=== PATIENT | female | born 1995 | race American Indian/Alaskan Native ===

== ENCOUNTER 2018-02-05 22:24 | Inpatient (IN) | payer OTHER ==
[2018-02-05] MEDS ORDERED: XYLOCAINE 2% INFILTRATI ONE (23:31)
[2018-02-05] MEDS ORDERED: PHENERGAN PO PRN (23:31)
[2018-02-05] MEDS ORDERED: BRETHINE IVP PRN (23:31)
[2018-02-05] MEDS ORDERED: STADOL IV PRN (23:31)
[2018-02-05] MEDS ORDERED: ePHEDrine SULFATE IV PRN (23:31)
[2018-02-05] MEDS ORDERED: BRETHINE SUB-Q PRN (23:31)
--- NOTE | 2018-02-05 23:31 | History and Physical Report ---
History of Present Illness Date of examination: 02/05/18 Date of admission: 02/05/18 23:23 History of present illness: Patient presents to triage with complaints of ruptured membranes approximately 8 :30 PM. Initial evaluation in triage revealed the patient was ruptured with the cervix dilatation of 5 cm. Patient then admitted for active labor Menstrual History Regularity: regular Duration: 5 LMP: 04/29/2017 LMP reliability: definite LMP character: normal test type: urine test Date: 01/12/2018 BC at conception: none Planned ? yes EDC Calculations LMP: 02/03/2018 EDC Confirmation: 01/29/2018 Past History : 2 Term Births: 0 Premature Births: 0 Living Children: 0 Para: 0 Mult. Births: 0 Prev : 0 Prev. attempt? none Aborta: 1 Elect. Ab: 0 Spont. 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) Family/Genetic History: other (see HPI) Social history: other (see HPI) - Obstetrical History Expected Date of Delivery: 01/29/18 Actual Gestation: 41 Week(s) 1 Day(s) : 2 Para: 0 Hx # Term Pregnancies: 0 Number of Pregnancies: 0 Spontaneous Abortions: 1 Induced : 0 Number of Living Children: 0 Medications and Allergies Allergies Allergy/AdvReac Type Severity Reaction Status Date / Time No Known Allergies Allergy Verified 02/05/18 23:48 Home Medications Medication Instructions Recorded Confirmed Last Taken Type Vit,Calc76/Iron/Folic 1 tab PO DAILY 02/05/18 02/05/18 02/05/18 10:30 History [Pnv 29-1 Tablet] - Vital Signs Vital signs: Vital Signs Temp Pulse Resp BP Pulse Ox 98.4 F 85 18 125/80 100 02/05/18 23:07 02/05/18 23:07 02/05/18 23:07 02/05/18 23:07 02/05/18 23:07 Temp Pulse Resp BP Pulse Ox 98.4 F 85 18 125/80 100 02/05/18 23:07 02/05/18 23:07 02/05/18 23:07 02/05/18 23:07 02/05/18 23:07 - Physical Exam Breasts: Positive: deferred Cardiovascular: Regular rate Lungs: Positive: Normal air movement Abdomen: Positive: normal appearance, soft, normal bowel sounds Genitourinary (Female): Positive: normal external genitalia, normal perenium Vulva: both: normal Vagina: Positive: normal moisture Cervix: Positive: other (Per RN) Uterus: Positive: enlarged Anus/Rectum: Positive: normal perianal skin Extremities: Positive: edema - Obstetrical FHR: category 2 Uterine Contraction Monitor Mode: Palpation Uterine Contraction Pattern: Regular Results Result Diagrams: 02/05/18 23:35 All other labs normal. Assessment and Plan - Patient Problems (1) Post term at 41 weeks gestation Current Visit: Yes Status: Acute (2) Spontaneous rupture of amniotic membranes Current Visit: Yes Status: Acute (3) Active labor at term Current Visit: Yes Status: Acute Plan to address problem: Arthur manage labor and delivery for follow active labor protocol. Augment labor if necessary.
[2018-02-05] MEDS ORDERED: PITOCin/NS 20 UNIT/1000ML DRIP 20 UNITS/1,000 ML BAG IV SCH (23:45)
[2018-02-05 23:53] LABS: Hematocrit 35.5 % (30.3-42.9); Hemoglobin 11.7 gm/dl (10.1-14.3); Mean Corpuscular HGB Conc 33 % (30-34); Mean Corpuscular Hemoglobin 29 pg (28-32); Mean Corpuscular Volume 87 fl (79-97); Platelet Count 221 K/mm3 (140-440); Red Blood Count 4.07 M/mm3 (3.65-5.03); Red Cell Distribution Width 14.2 % (13.2-15.2)
[2018-02-06] MEDS: LACTATED RINGERS 1,000 ML IV SCH ×4 (00:04→04:27)
[2018-02-06] MEDS ORDERED: ePHEDrine SULFATE IV PRN (01:47)
[2018-02-06] MEDS ORDERED: NARCAN 2 MG/2 ML IV PRN (01:47)
--- NOTE | 2018-02-06 01:47 | Anesthesia Consultation ---
Anesthesia Consult and Med Hx Date of service: 02/06/18 - Airway Anesthetic Teeth Evaluation: Good ROM Head & Neck: Adequate Mental/Hyoid Distance: Adequate Mallampati Class: Class II Intubation Access Assessment: Probably Good - Pulmonary Exam CTA: Yes - Cardiac Exam Cardiac Exam: RRR - Pre-Operative Health Status ASA Pre-Surgery Classification: ASA2 Proposed Anesthetic Plan: Epidural - Pulmonary Hx Asthma: No COPD: No - Cardiovascular System Hx Hypertension: No - Central Nervous System Hx Seizures: No Hx Psychiatric Problems: No - Endocrine Hx Renal Disease: No Hx End Stage Renal Disease: No Hx Hypothyroidism: No Hx Hyperthyroidism: No - Hematic Hx Anemia: No Hx Sickle Cell Disease: No - Other Systems Hx Alcohol Use: No
[2018-02-06] MEDS ORDERED: fentaNYL-BUPIV 2 MCG/ML-0.125% 200 MCG/100 ML BAG EPIDURAL SCH (02:00)
--- NOTE | 2018-02-06 03:04 | Event Note ---
Date: 02/06/18 Patient comfortable with epidural. Cervix now 7/100/0+1. tracing with minimal reactivity. IUPC and FSE placed. Cervix is changing will watch progress and and also watch tracing.
[2018-02-06] MEDS ORDERED: PITOCin/NS 30 UNIT/500ML 30,000 MILLIUNITS/500 ML BAG IV ONE (03:20)
--- NOTE | 2018-02-06 03:49 | Event Note ---
Date: 02/06/18 Patient had a deceration improved with change of position cx 8cm
--- NOTE | 2018-02-06 06:00 | Event Note ---
Date: 02/06/18 tracing improved patient's exam now cervix rim completely dilated at +1 to +2 station. We will start pushing once tracing close
[2018-02-06] MEDS ORDERED: METHERGINE IM ONE ×2 (07:31→08:00)
--- NOTE | 2018-02-06 07:49 | Procedure Note ---
OB Delivery Note - Delivery Date of Delivery: 02/06/18 ( male) Newspaper Photographer: EDGAR MATOS Estimated blood loss: 500cc - Vaginal Delivery presentation: vertex Delivery position: OA Intrapartum events: none, decreased FHT variability, uterine atony (resolved with massage and IV pitocin) Delivery monitor: internal FHT, internal uterine Route of delivery: Delivery placenta: spontaneous Delivery cord: 3 umbilical vessels Episiotomy: none Delivery laceration: 2nd degree Delivery repair: vicryl Anesthesia: epidural Delivery comments: male infant del over intact perineum OA, placed skin to skin on mother' s abdomen. 3 vessel cord clamped and cut. cord blood collected. Placenta del intact and complete. Uterus boggy but firmed with massage and IV pitocin. 2nd degree lac repaired w/ vicryl in the usual fashion. EBL 500, apgars 8/9, wt 8# 3oz. Mother and infant remain LDR stable - Infant A at 1 minute: 8 at 5 minutes: 9 Gender: Male
[2018-02-06] MEDS ORDERED: PRENATAL VITAMIN PO SCH (16:36)
[2018-02-06] MEDS ORDERED: SODIUM CHLORIDE FLUSH SYRINGE 10 ML IV NR (16:36)
[2018-02-06] MEDS ORDERED: PITOCin/NS 20 UNIT/1000ML DRIP 20 UNITS/1,000 ML BAG IV SCH (16:36)
[2018-02-06] MEDS ORDERED: LANSINOH TP PRN (16:36)
[2018-02-06] MEDS ORDERED: PHENERGAN PO PRN (16:36)
[2018-02-06] MEDS ORDERED: DERMOPLAST TP PRN (16:36)
[2018-02-06] MEDS ORDERED: MILK OF MAGNESIA PO PRN (16:36)
[2018-02-06] MEDS ORDERED: ZOFRAN IV PRN (16:36)
[2018-02-06] MEDS ORDERED: BENADRYL PO PRN (16:36)
[2018-02-06] MEDS ORDERED: DULCOLAX PR PRN (16:36)
[2018-02-06] MEDS ORDERED: TYLENOL PO PRN (16:36)
[2018-02-06] MEDS ORDERED: TUCKS PAD TP PRN (16:36)
[2018-02-06 18:22] LABS: Hematocrit 35.4 % (30.3-42.9); Hemoglobin 11.3 gm/dl (10.1-14.3)
[2018-02-06] MEDS: MOTRIN PO SCH (18:25)
[2018-02-06] MEDS: FEOSOL PO SCH (22:17)
[2018-02-06] MEDS: COLACE PO SCH (22:17)
[2018-02-07] MEDS: MOTRIN PO SCH ×3 (00:09→12:25)
[2018-02-07] MEDS ORDERED: BOOSTRIX IM ONE ×2 (07:56→17:57)
--- NOTE | 2018-02-07 10:33 | Progress Note ---
Assessment and Plan - Patient Problems (1) (normal spontaneous vaginal delivery) Current Visit: Yes Status: Acute Plan to address problem: -routine pp care -d/c home today Subjective - Subjective Date of service: 02/07/18 Principal diagnosis: PPD #1 s/p -doing well Interval history: Pt doing well and desires d/c home today. Breast/bottle feeding. Patient reports: appetite normal, voiding normally, pain well controlled, no dizzy ambulation [place]: doing well, nursing well, bottle feeding Objective - Vital Signs Latest vital signs: Vital Signs Temp Pulse Resp BP 02/06/18 16:00 98.4 F 94 H 20 115/77 Intake and Output 02/06/18 02/07/18 02/07/18 22:59 06:59 14:59 Intake Total 120 Output Total 900 Balance -900 120 Intake: Oral 120 Output: Urine 900 Void 900 Other: Total, Intake Amount 120 Total, Output Amount 900 # Voids Void 1 - Exam Cardiovascular: Present: Normal S1 Lungs: Present: Clear to auscultation, Normal air movement Abdomen: Present: normal appearance, soft, normal bowel sounds. Absent: distention, tenderness, guarding Uterus: Present: normal, firm, fundal height below umbilicus. Absent: bogginess , tenderness Extremities: Present: normal. Absent: tenderness, edema Deep Tendon Reflex Grade: Normal +2
[2018-02-07] MEDS: COLACE PO SCH (10:41)
[2018-02-07] MEDS: FEOSOL PO SCH (10:41)
--- NOTE | 2018-02-07 11:30 | Discharge Summary ---
Providers - Providers Date of Admission: 02/05/18 23:23 Date of discharge: 02/07/18 Attending physician: STONE BAUMAN 02/06/18 16:36 Consult to Nail Welter [CONS] Routine Reason For Exam: assistance with , SNS Primary care physician: STONE BAUMAN Hospitalization Reason for admission: active labor, section Procedure details: see delivery note Episiotomy: other (see delivery note) [place] baby: male Hospital course: Pt s/p . Routine pp care that was not complicated. Pt will be d/c home today PPD #1. Condition at discharge: Good Disposition: DC-01 TO HOME OR SELFCARE - Discharge Diagnoses (1) (normal spontaneous vaginal delivery) Status: Acute Plan - Provider Discharge Summary Additional instructions: [] Smoking cessation referral if applicable(refer to patient education folder for contact #) [] Refer to [facility] Booklet Call your doctor immediately for: * Fever > 100.5 * Heavy vaginal bleeding ( >1 pad per hour) * Severe persistent headache * Shortness of breath * Reddened, hot, painful area to leg or breast * Drainage or odor from incision. * Keep incision clean and dry at all times and follow doctor's instructions regarding bathing/showering PLEASE CALL TO SCHEDULE CIRCUMCISION WITHIN FIRST TWO WEEKS OF DELIVERY. - Follow up plan Follow up: STONE BAUMAN MD [Primary Care Provider] - 7 Days
[2018-02-07 14:14] VITALS: BP 125/89
== END 2018-02-07 18:30 | disposition home or self-care (01) | DRG 775 ==
LOC: TRG 22:24 → LD 23:23 → TRG 23:23 → OB 02-06 11:26
PROVIDERS: ADMIT Obstetrics & Gynecology; ATTEND Obstetrics & Gynecology
PROC: 10E0XZZ Delivery of Products of Conception, External Approach (ICD-10-PCS; principal; 2018-02-06)
PROC: 0KQM0ZZ Repair Perineum Muscle, Open Approach (ICD-10-PCS; 2018-02-06)
PROC: 3E0R3BZ Introduction of Anesthetic Agent into Spinal Canal, Percutaneous Approach (ICD-10-PCS; 2018-02-06)
PROC: 00HU33Z Insertion of Infusion Device into Spinal Canal, Percutaneous Approach (ICD-10-PCS; 2018-02-06)
DX: O48.0 Post-term pregnancy (principal); Z3A.41 41 weeks gestation of pregnancy; Z37.0 Single live birth; O70.1 Second degree perineal laceration during delivery; O76 Abnormality in fetal heart rate and rhythm complicating labor and delivery; O62.2 Other uterine inertia
CPT/HCPCS: 36415; 85014; 85018; 85027; 86762; 86850; 86900; 86901; 90715; 99211; G0463; J0595; J2210; J2590; J7120

== ENCOUNTER 2019-07-24 22:36 | Emergency (ER) | payer OTHER ==
--- NOTE | 2019-07-25 00:07 | Emergency Department Report ---
ED General Adult HPI - General Chief complaint: Extremity Injury, Lower Stated complaint: LEG PAIN/CLOT Time Seen by Provider: 07/24/19 23:46 Source: patient Mode of arrival: Ambulatory Limitations: No Limitations - History of Present Illness Initial comments: 24-year-old female patient who is 27 weeks presents with complaints of abnormal bruising on her left lower leg. Patient states both legs have been intermittently hurting for the past 2 months. She denies any swelling or injuries to her legs. Denies any history of abnormal bleeding, bleeding disorders, leading guns, hematochezia, hematuria, or DVT/PE. Patient states her last long travel was about 3 months ago. -: Sudden Location: lower extremity Consistency: intermittent Worsens with: other (standing for extended periods of time) Associated Symptoms: denies other symptoms - Related Data Home Medications Medication Instructions Recorded Confirmed Last Taken Vit,Calc76/Iron/Folic 1 tab PO DAILY 02/05/18 02/05/18 02/05/18 10:30 [Pnv 29-1 Tablet] Previous Rx's Medication Instructions Recorded Last Taken Type Lidocain2.5%/Prilocai2.5% [Emla] 1 gm TP ONCE #1 tube 02/07/18 Unknown Rx Allergies Allergy/AdvReac Type Severity Reaction Status Date / Time No Known Allergies Allergy Verified 02/05/18 23:48 ED Review of Systems ROS: Stated complaint: LEG PAIN/CLOT Other details as noted in HPI Eyes: denies: vision change ENT: denies: epistaxis Respiratory: denies: cough, shortness of breath Cardiovascular: denies: chest pain, palpitations, edema, syncope Gastrointestinal: denies: abdominal pain, nausea, vomiting, diarrhea, constipation, hematemesis, melena, hematochezia Genitourinary: denies: urgency, dysuria, frequency, hematuria Musculoskeletal: denies: joint swelling Skin: denies: rash, lesions Neurological: denies: headache, weakness, numbness, paresthesias Hematological/Lymphatic: denies: easy bleeding, swollen glands ED Past Medical Hx - Past Medical History Previous Medical History?: No Hx Hypertension: No Hx Diabetes: No Hx Deep Vein Thrombosis: No Hx Renal Disease: No Hx Sickle Cell Disease: No Hx Seizures: No Hx Asthma: No Hx COPD: No Hx HIV: No - Surgical History Past Surgical History?: Yes Hx Pacemaker: Yes - Social History Smoking Status: Never Smoker Substance Use Type: None - Medications Home Medications: Home Medications Medication Instructions Recorded Confirmed Last Taken Type Vit,Calc76/Iron/Folic 1 tab PO DAILY 02/05/18 02/05/18 02/05/18 10:30 History [Pnv 29-1 Tablet] Lidocain2.5%/Prilocai2.5% [Emla] 1 gm TP ONCE #1 tube 02/07/18 Unknown Rx ED Physical Exam - General Limitations: No Limitations General appearance: alert, in no apparent distress - Head Head exam: Present: atraumatic, normocephalic - Eye Eye exam: Present: normal appearance. Absent: scleral icterus - ENT ENT exam: Present: normal exam, normal orophraynx - Neck Neck exam: Present: normal inspection - Respiratory Respiratory exam: Present: normal lung sounds bilaterally. Absent: respiratory distress - Cardiovascular Cardiovascular Exam: Present: regular rate, normal rhythm. Absent: systolic murmur, diastolic murmur, rubs, gallop - GI/Abdominal GI/Abdominal exam: Present: soft, normal bowel sounds - Rectal Rectal exam: Present: deferred - Extremities Exam Extremities exam: Absent: calf tenderness - Neurological Exam Neurological exam: Present: alert, oriented X3 - Psychiatric Psychiatric exam: Present: normal affect, normal mood - Skin Skin exam: Present: warm, dry, intact, normal color, ecchymosis (3 small diffuse bruises noted to the left lower leg). Absent: rash, cyanosis, diaphoretic, erythema, urticaria, petechiae, pallor ED Course Vital Signs 07/24/19 07/25/19 22:41 05:07 Temperature 97.3 F L Pulse Rate 88 78 Respiratory 18 16 Rate Blood Pressure 110/72 Blood Pressure 111/72 [Right] O2 Sat by Pulse 100 99 Oximetry ED Medical Decision Making - Lab Data Result diagrams: 07/25/19 00:00 07/25/19 00:00 Lab Results 07/25/19 07/25/19 07/25/19 Range/Units 00:00 00:00 00:00 WBC 10.0 (4.5-11.0) K/mm3 RBC 3.89 (3.65-5.03) M/mm3 Hgb 11.3 (10.1-14.3) gm/dl Hct 33.7 (30.3-42.9) % MCV 87 (79-97) fl MCH 29 (28-32) pg MCHC 34 (30-34) % RDW 13.7 (13.2-15.2) % Plt Count 206 (140-440) K/mm3 Add Manual Diff Complete Total Counted 100 Seg Neuts % (Manual) 73.0 H (40.0-70.0) % Band Neutrophils % 0 % Lymphocytes % (Manual) 20.0 (13.4-35.0) % Reactive Lymphs % (Man) 0 % Monocytes % (Manual) 5.0 (0.0-7.3) % Eosinophils % (Manual) 2.0 (0.0-4.3) % Basophils % (Manual) 0 (0.0-1.8) % Metamyelocytes % 0 % Myelocytes % 0 % Promyelocytes % 0 % Blast Cells % 0 % Nucleated RBC % Not Reportable Seg Neutrophils # Man 7.3 (1.8-7.7) K/mm3 Band Neutrophils # 0.0 K/mm3 Lymphocytes # (Manual) 2.0 (1.2-5.4) K/mm3 Abs React Lymphs (Man) 0.0 K/mm3 Monocytes # (Manual) 0.5 (0.0-0.8) K/mm3 Eosinophils # (Manual) 0.2 (0.0-0.4) K/mm3 Basophils # (Manual) 0.0 (0.0-0.1) K/mm3 Metamyelocytes # 0.0 K/mm3 Myelocytes # 0.0 K/mm3 Promyelocytes # 0.0 K/mm3 Blast Cells # 0.0 K/mm3 WBC Morphology Not Reportable Hypersegmented Neuts Not Reportable Hyposegmented Neuts Not Reportable Hypogranular Neuts Not Reportable Smudge Cells Not Reportable Toxic Granulation Not Reportable Toxic Vacuolation Not Reportable Dohle Bodies Not Reportable Pelger-Huet Anomaly Not Reportable Tamela Rods Not Reportable Platelet Estimate Consistent w auto Clumped Platelets Not Reportable Plt Clumps, EDTA Not Reportable Large Platelets Not Reportable Giant Platelets Not Reportable Platelet Satelliting Not Reportable Plt Morphology Comment Not Reportable RBC Morphology Normal Dimorphic RBCs Not Reportable Polychromasia Not Reportable Hypochromasia Not Reportable Poikilocytosis Not Reportable Anisocytosis Not Reportable Microcytosis Not Reportable Macrocytosis Not Reportable Spherocytes Not Reportable Pappenheimer Bodies Not Reportable Sickle Cells Not Reportable Target Cells Not Reportable Tear Drop Cells Not Reportable Ovalocytes Not Reportable Helmet Cells Not Reportable [place] Bodies Not Reportable [place] Rings Not Reportable [place] Cells Not Reportable Bite Cells Not Reportable Crenated Cell Not Reportable Elliptocytes Not Reportable Acanthocytes (Spur) Not Reportable Rouleaux Not Reportable Hemoglobin C Crystals Not Reportable Schistocytes Not Reportable Malaria parasites Not Reportable Tremayne Bodies Not Reportable Hem Pathologist Commnt No PT 13.2 (12.2-14.9) Sec. INR 1.01 (0.87-1.13) APTT 27.6 (24.2-36.6) Sec. Sodium 137 (137-145) mmol/L Potassium 4.2 (3.6-5.0) mmol/L Chloride 102.9 (98-107) mmol/L Carbon Dioxide 21 L (22-30) mmol/L Anion Gap 17 mmol/L BUN 8 (7-17) mg/dL Creatinine 0.4 L (0.7-1.2) mg/dL Estimated GFR > 60 ml/min BUN/Creatinine Ratio 20 % Glucose 100 (65-100) mg/dL Calcium 8.9 (8.4-10.2) mg/dL Total Bilirubin 0.30 (0.1-1.2) mg/dL AST 16 (5-40) units/L ALT 9 (7-56) units/L Alkaline Phosphatase 91 (35-129) units/L Total Protein 6.5 (6.3-8.2) g/dL Albumin 3.2 L (3.9-5) g/dL Albumin/Globulin Ratio 1.0 % - Medical Decision Making Patient here for 2 months of bilateral lower leg pain and new onset of bruising to her left leg without injury today. She is 37 weeks . She denies any blood disorders. CBC is WNL. PT and INR are normal. No kidney dysfunction is noted on labs. Ultrasound ordered, but patient unable to obtain tonight due to Doppler being unavailable here in the ED tonight. Patient to discharge home and come back in the morning for her ultrasound with nuclear medicine. Also recommend patient follows up with her BRUSH OR BROOM CUTTER within 1-2 days. Discussed very strict return precautions in detail with patient who states understanding. Critical care attestation.: If time is entered above; I have spent that time in minutes in the direct care of this critically ill patient, excluding procedure time. ED Disposition Clinical Impression: Abnormal bruising, Bilateral lower extremity pain Disposition: TO HOME OR SELFCARE Is pt being admited?: No Condition: Stable Additional Instructions: Please return to the Nuclear Medicine Department tomorrow morning at 8 am. It is also recommended that you follow up with your OBGYN provider within 2 days. Return to the emergency department if he developed any new or worsening symptoms Referrals: TOSHA COELLO MD [Primary Care Provider] - 3-5 Days
[2019-07-25 00:17] LABS: Hematocrit 33.7 % (30.3-42.9); Hemoglobin 11.3 gm/dl (10.1-14.3); Mean Corpuscular HGB Conc 34 % (30-34); Mean Corpuscular Volume 87 fl (79-97); Platelet Count 206 K/mm3 (140-440); Red Blood Count 3.89 M/mm3 (3.65-5.03); Red Cell Distribution Width 13.7 % (13.2-15.2)
[2019-07-25 00:40] LABS: Alanine Aminotransferase 9 units/L (7-56); Albumin 3.2 g/dL (3.9-5); BUN/Creatinine Ratio 20; Blood Urea Nitrogen 8 mg/dL (7-17); Calcium 8.9 mg/dL (8.4-10.2); Hemolysis Index 13
[2019-07-25 01:00] LABS: INR 1.01 (0.87-1.13)
[2019-07-25 01:01] LABS: Partial Thromboplastin Time 27.6 Sec. (24.2-36.6)
[2019-07-25 02:27] LABS: Basophils % (Manual) 0 % (0.0-1.8); Platelet Estimate Consistent w Auto; RBC Morphology Normal; Total Cells Counted 100
[2019-07-25 05:08] VITALS: BP 111/72
== END 2019-07-25 02:45 | disposition home or self-care (01) ==
LOC: ED 22:36
DX: O26.893 Other specified pregnancy related conditions, third trimester (principal); M79.604 Pain in right leg; M79.605 Pain in left leg; Z3A.37 37 weeks gestation of pregnancy
CPT/HCPCS: 36415; 80053; 85007; 85025; 85610; 85730

== ENCOUNTER 2019-07-25 13:31 | Outpatient (CLI) | payer OTHER ==
--- NOTE | 2019-07-25 16:22 | Vascular Lab Report ---
DUPLEX DOPPLER LOWER EXTREMITY VEINS, BILATERAL INDICATION: Bilateral lower extremity edema. TECHNIQUE: Duplex doppler imaging was performed through the veins of both lower extremities using venous dorinda aris and other maneuvers. COMPARISON: No relevant prior imaging study available. FINDINGS: Right Common Femoral vein: Negative. Right Superficial Femoral vein: Negative. Right Popliteal vein: Negative. Right Calf veins: Negative. Left Common Femoral vein: Negative. Left Superficial Femoral vein: Negative. Left Popliteal vein: Negative. Left Calf veins: Negative. Additional findings: None. IMPRESSION: 1. No sonographic evidence for DVT in either lower extremity. Signer Name: Artis Mauro MD Signed: 07/25/2019 4:18 PM Workstation Name: [id number]
== END 2019-07-25 13:32 | disposition home or self-care (01) ==
LOC: US 13:31
PROVIDERS: ATTEND Obstetrics & Gynecology
DX: R22.40 Localized swelling, mass and lump, unspecified lower limb (principal)
CPT/HCPCS: 93970

== ENCOUNTER 2019-08-03 16:40 | Outpatient (CLI) | payer OTHER ==
[2019-08-03 17:01] VITALS: BP 111/61
--- NOTE | 2019-08-03 19:15 | Ultrasound Report ---
Limited OB ultrasound for DAPHNE FINDINGS: DAPHNE is in the low normal range at 10.2 cm. Signer Name: Tam Malone MD Signed: 08/03/2019 7:10 PM Workstation Name: [id number]
== END 2019-08-03 18:55 | disposition home or self-care (01) ==
LOC: TRG 16:40
PROVIDERS: ATTEND Obstetrics & Gynecology
DX: O47.1 False labor at or after 37 completed weeks of gestation (principal); Z3A.39 39 weeks gestation of pregnancy
CPT/HCPCS: 76815

== ENCOUNTER 2019-08-11 03:10 | Inpatient (IN) | payer OTHER ==
[2019-08-11] MEDS ORDERED: TERBUTALINE 1 MG/1 ML INJ SUB-Q PRN (04:02)
[2019-08-11] MEDS ORDERED: BUTORPHANOL 2 MG/1 ML INJ IV PRN (04:02)
[2019-08-11] MEDS ORDERED: fentaNYL 100 MCG/2 ML INJ IV PRN (04:02)
[2019-08-11] MEDS ORDERED: MINERAL OIL 30 ML ORAL LIQD PO PRN (04:02)
[2019-08-11] MEDS ORDERED: TERBUTALINE 1 MG/1 ML INJ IVP PRN (04:02)
[2019-08-11] MEDS ORDERED: LIDOCAINE (2%) 20 MG/1 ML VIAL 20 ML MDV INFILTRATI ONE (04:02)
[2019-08-11] MEDS ORDERED: ePHEDrine SULFATE 50 MG/1 ML INJ IV PRN (04:02)
[2019-08-11 04:29] LABS: Hematocrit 35.9 % (30.3-42.9); Hemoglobin 12.1 gm/dl (10.1-14.3); Mean Corpuscular HGB Conc 34 % (30-34); Mean Corpuscular Volume 86 fl (79-97); Platelet Count 213 K/mm3 (140-440); Red Blood Count 4.16 M/mm3 (3.65-5.03); Red Cell Distribution Width 14.1 % (13.2-15.2)
[2019-08-11] MEDS: OXYTOCIN 20 UNIT/1000ML DRIP 20 UNITS/1,000 ML BAG IV SCH ×2 (04:50→06:00)
[2019-08-11] MEDS ORDERED: LACTATED RINGERS 1,000 ML IV SCH (05:00)
--- NOTE | 2019-08-11 05:07 | History and Physical Report ---
History of Present Illness Date of examination: 08/11/19 Chief complaint: Labor History of present illness: EDC Calculations LMP: 08/10/2019 Past History : 3 Term Births: 1 Premature Births: 0 Living Children: 1 Para: 0 Mult. Births: 0 Prev : 0 Prev. attempt? none Aborta: 1 Elect. Ab: 0 Spont. 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 of genital herpes: no Partner hx. of genital herpes: no Rash, Viral, or Febrile illness since last LMP? no Varicella/Chicken Pox Status: Previous Disease TB Risk: no Genetic History Congenital Heart Defect: Mom: no Dad: no Derek Disease: Mom: no Dad: no Thalassemia Mom: no Dad: no Neural Tube Defect Mom: no Dad: no Down's Syndrome Mom: no Dad: no Donny-Sachs Mom: no Dad: no Sickle Cell Disease/Trait Mom: no Dad: no Hemophilia Mom: no Dad: no Muscular Dystrophy Mom: no Dad: no Cystic Fibrosis Mom: no Dad: no Sarah Chorea Mom: no Dad: no Mental Retardation Mom: no Dad: no Fragile X Mom: no Dad: no Other Genetic/Chromosomal Disorder Mom: no Dad: no Child w/other defect Mom: no Dad: no Enviromental Exposures Enviromental Exposures Reviewed Xray Exposure: no Medication, drug, or alcohol use since LMP: no Chemical/Other Exposure: no Exposure to Cat Liter: no Hx of Parvovirus (Fifth Disease): no Occupational Exposure to Children: none Active Medications (reviewed today): PNV () Current Allergies (reviewed today): No known allergies Past History Past Medical History: other (see HPI) Past Surgical History: other (see HPI) 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) Family/Genetic History: other (see HPI) Social history: no significant social history - Obstetrical History Expected Date of Delivery: 08/10/19 Actual Gestation: 40 Week(s) 1 Day(s) : 3 Para: 1 Hx # Term Pregnancies: 1 Number of Pregnancies: 0 Spontaneous Abortions: 1 Induced : 0 Number of Living Children: 1 Medications and Allergies Allergies Allergy/AdvReac Type Severity Reaction Status Date / Time No Known Allergies Allergy Verified 08/11/19 04:01 Home Medications Medication Instructions Recorded Confirmed Last Taken Type Vit,Calc76/Iron/Folic 1 tab PO DAILY 02/05/18 08/03/19 08/03/19 07:00 History [Pnv 29-1 Tablet] Active Meds: Active Medications Butorphanol Tartrate (Stadol) 2 mg IV Q2H PRN PRN Reason: Pain , Severe (7-10) Ephedrine Sulfate (Ephedrine Sulfate) 10 mg IV Q2M PRN PRN Reason: Hypotension Fentanyl (Sublimaze) 100 mcg IV Q2H PRN PRN Reason: Labor Pain Oxytocin/Sodium Chloride (Pitocin/Ns 20 Unit/1000ml Drip) 20 units in 1,000 mls @ 125 mls/hr IV DIRECT DEJAN Lactated Ringer's (Lactated Ringers) 1,000 mls @ 125 mls/hr IV DIRECT DEJAN Mineral Oil (Mineral Oil) 30 ml PO QHS PRN PRN Reason: Constipation Terbutaline Sulfate (Brethine) 0.25 mg SUB-Q ONCE PRN PRN Reason: Hyperstimulation/Hypertonicity Terbutaline Sulfate (Brethine) 0.25 mg IVP ONCE PRN PRN Reason: Hyperstimulation/Hypertonicity Review of Systems All systems: negative - Vital Signs Vital signs: Vital Signs Pulse Pulse Ox 79 100 08/11/19 03:56 08/11/19 03:56 Temp Pulse Resp BP Pulse Ox 83 136/76 98 08/11/19 04:19 08/11/19 04:19 08/11/19 04:06 - Physical Exam Breasts: Positive: normal Cardiovascular: Regular rate Lungs: Positive: Clear to auscultation, Normal air movement Abdomen: Positive: normal appearance, soft Genitourinary (Female): Positive: normal external genitalia, normal perenium Vulva: both: normal Uterus: Positive: normal size, normal contour Anus/Rectum: Positive: normal perianal skin Extremities: Positive: normal Deep Tendon Reflex Grade: Normal +2 - Obstetrical FHR: auscultation normal Uterine Contraction Monitor Mode: External Cervical Dilatation: 10 (SROM clear fluid ) Cervical Effacement Percentage: 100 station: +1 Uterine Contraction Pattern: Regular Uterine Tone Measurement Phase: Contraction Uterine Contraction Intensity: Strong/Firm Results Result Diagrams: 08/11/19 03:45 All other labs normal. Assessment and Plan Admission orders in EMR, anticipate delivery. - Patient Problems (1) Active labor at term Current Visit: No Status: Acute
--- NOTE | 2019-08-11 05:14 | Procedure Note ---
OB Delivery Note - Delivery Date of Delivery: 08/11/19 ( female) Cras: EDGAR MATOS Estimated blood loss: 300cc - Vaginal Delivery presentation: vertex Delivery position: OA Intrapartum events: none Delivery induction: none Delivery monitor: external FHT, external uterine Route of delivery: Delivery placenta: spontaneous Delivery cord: 3 umbilical vessels Episiotomy: none Delivery laceration: none Anesthesia: none Delivery comments: female del ASHTYN over intact perineum, placed skin to skin on mother's abdomen. 3 vessel cord clamped and cut after cessation of pulsation, cord blood collected. Placenta del intact and complete. EBL 300, apgars 9/9. wt 7#4oz. mother and baby remain LDR stable. - A at 1 minute: 9 at 5 minutes: 9 Gender: Female (7#4oz)
[2019-08-11] MEDS ORDERED: IBUPROFEN 600 MG TAB PO SCH (07:59)
[2019-08-11] MEDS ORDERED: BENZOCAINE/MENTHOL 20/0.5% TOP SPRAY 56 GM TP PRN (09:00)
[2019-08-11] MEDS ORDERED: PROMETHAZINE 25 MG TAB PO PRN (09:00)
[2019-08-11] MEDS ORDERED: LANOLIN/ZINC/DIMETHICONE (LANSINOH) 7 GM TP PRN (09:00)
[2019-08-11] MEDS ORDERED: ACETAMINOPHEN 325 MG TAB PO PRN (09:00)
[2019-08-11] MEDS ORDERED: ONDANSETRON 4 MG/2 ML INJ IV PRN (09:00)
[2019-08-11] MEDS ORDERED: diphenhydrAMINE 25 MG CAP PO PRN (09:00)
[2019-08-11] MEDS ORDERED: WITCH HAZEL/ GLYCERIN PAD TP PRN (09:30)
[2019-08-11] MEDS: PRENATAL VIT27-FE FUMARATE-FOLIC ACID VIT TAB PO SCH (09:48)
[2019-08-11] MEDS: IBUPROFEN 800 MG TAB PO SCH ×3 (11:54→23:33)
[2019-08-11 17:35] LABS: Hematocrit 34.1 % (30.3-42.9); Hemoglobin 11.4 gm/dl (10.1-14.3)
[2019-08-11] MEDS ORDERED: MAGNESIUM HYDROXIDE (MOM) ORAL LIQD UDC PO PRN (22:00)
[2019-08-12] MEDS: IBUPROFEN 800 MG TAB PO SCH ×2 (05:10→11:31)
[2019-08-12] MEDS ORDERED: TETANUS,DIPH,PERTUSS(ACELL) VACCINE 0.5 ML SYRINGE IM ONE (06:00)
--- NOTE | 2019-08-12 08:03 | Discharge Summary ---
Providers - Providers Date of Admission: 08/11/19 04:02 Date of discharge: 08/12/19 (Pt desires to go home) Attending physician: JAVY MARIE Primary care physician: JAVY MARIE Hospitalization Delivery: Episiotomy: none Laceration: none Other procedures: none complications: none Discharge diagnosis: IUP at term delivered baby: female Hospital course: S: Pt states doing well. She is ambulating, passing flatus, has minimal bleeding. She desires to go home today. States she will use IUD for BC. O: VSS, minimal Lochia rubra, FF, H/H 11.4/34.1. A: 24 y.o. s/p on 08/11/2019 with no complications. Desires to go home today. P: D/C home today with instructions. Follow up in office 4 weeks Condition at discharge: Good Disposition: [id number] TO HOME OR SELFCARE Plan - Provider Discharge Summary Activity: routine, no sex for 6 weeks, no heavy lifting 4 weeks, no strenuous exercise Diet: routine Instructions: routine Additional instructions: [] Smoking cessation referral if applicable(refer to patient education folder for contact #) [] Refer to [facility] Booklet Call your doctor immediately for: * Fever > 100.5 * Heavy vaginal bleeding ( >1 pad per hour) * Severe persistent headache * Shortness of breath * Reddened, hot, painful area to leg or breast * Drainage or odor from incision. * Keep incision clean and dry at all times and follow doctor's instructions regarding bathing/showering - Follow up plan Follow up: JAVY MARIE MD [Primary Care Provider] - 09/13/19 (Congratulations!!! Please follow up in the office for your visit at 4 weeks. If you have questions or concerns before your visit, please give us a call. )
[2019-08-12] MEDS: PRENATAL VIT27-FE FUMARATE-FOLIC ACID VIT TAB PO SCH (11:31)
[2019-08-12 19:08] VITALS: BP 100/70
== END 2019-08-12 20:21 | disposition home or self-care (01) | DRG 775 ==
LOC: TRG 03:10 → LD 04:02 → TRG 04:02 → OB 07:46
PROVIDERS: ADMIT Obstetrics & Gynecology; ATTEND Obstetrics & Gynecology
PROC: 10E0XZZ Delivery of Products of Conception, External Approach (ICD-10-PCS; principal; 2019-08-11)
PROC: 3E0234Z Introduction of Serum, Toxoid and Vaccine into Muscle, Percutaneous Approach (ICD-10-PCS; 2019-08-12)
DX: O80 Encounter for full-term uncomplicated delivery (principal); Z3A.40 40 weeks gestation of pregnancy; Z37.0 Single live birth; Z23 Encounter for immunization
CPT/HCPCS: 36415; 85014; 85018; 85027; 86850; 86900; 86901; G0378; J2590; J3010; J7120